=== PATIENT | male | born 1965 | race Hispanic/Latino ===

== ENCOUNTER 2024-10-22 17:04 | Emergency (ER) | payer SELFPAY ==
[2024-10-22] VITALS (11 sets, daily range): BP systolic 151–167; BP diastolic 89–106
[~2024-10-22] VITALS: Ht 152.4 cm; Wt 71.6 kg
[~2024-10-22 17:04] MED LIST: MEDDOSEPAK OR
[2024-10-22] MEDS ORDERED: SODIUM CHLORIDE 0.9% 1,000 ML IV SCH (17:45)
[2024-10-22 18:12] LABS: BASO% 0.2 % (0-3); HEMATOCRIT 45.6 % (39.0-50.0); HEMOGLOBIN 15.7 g/dl (14.0-18.0); IMMATURE GRANULOCYTES 0.2 % (0.0-5.0); LYMPH% 16.4 % (15-41); MEAN CELL VOLUME 84.6 fL CALC (80.0-100.0); MEAN CORPUSCULAR HGB 29.1 pG CALC (26.0-32.0); MEAN CORPUSCULAR HGB CONC 34.4 g/dL CAL (32.0-36.0); MONO% 7.8 % (2-13); NEUT# 6.75 thou/uL (1.82-7.42); NEUT% 75.4 % (42-76); RED BLOOD COUNT 5.39 mill/uL (4.70-6.10); RED CELL DISTRI WIDTH 11.8 % (11.5-15.5)
[2024-10-22 18:22] LABS: BILIRUBIN, TOTAL 1.2 mg/dL (0.2-1.3); CREATININE 0.7 mg/dL (0.7-1.3)
[2024-10-22] MEDS ORDERED: ACETAMINOPHEN 500 MG TAB PO ONE (18:55)
[2024-10-22] MEDS ORDERED: AMARYL1 MG PO (19:41)
[2024-10-22] MEDS ORDERED: METFORMIN HCL500 M1 PO (19:41)
== END 2024-10-22 20:03 | disposition home or self-care (01) | DRG 866 ==
LOC: ED 17:04
PROVIDERS: Family Medicine
DX: B34.9 Viral infection, unspecified (principal); R00.0 Tachycardia, unspecified; E11.65 Type 2 diabetes mellitus with hyperglycemia; I10 Essential (primary) hypertension; Z20.822 Contact with and (suspected) exposure to COVID-19